=== PATIENT | male | born 1985 | race Caucasian/White ===

== ENCOUNTER 2018-10-20 00:45 | Emergency (ER) | payer OTHER ==
[2018-10-20] MEDS ORDERED: ACETAMINOPHEN 325 MG TABLET PO ONE (02:45)
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
[2018-10-20 04:11] VITALS: BP 121/67
== END 2018-10-20 04:11 | disposition home or self-care (01) ==
LOC: ER 00:45
DX: M25.561 Pain in right knee (principal); M25.562 Pain in left knee; M25.552 Pain in left hip; M54.2 Cervicalgia; M79.18 Myalgia, other site; V43.52XA Car driver injured in collision with other type car in traffic accident, initial encounter; F17.200 Nicotine dependence, unspecified, uncomplicated; Z88.1 Allergy status to other antibiotic agents
CPT/HCPCS: 99283

== ENCOUNTER 2019-04-25 03:32 | Emergency (ER) | payer OTHER ==
--- NOTE | 2019-04-25 04:08 | ER Document Report ---
ED Psych Disorder / Suicide - General Chief Complaint: Psych Problem Stated Complaint: PSYCH Time Seen by Provider: 04/25/19 04:08 Mode of Arrival: Ambulatory Information source: Patient, Law Enforcement, Emergency Med Personnel Notes: HISTORY OF PRESENT ILLNESS: Patient is a 33-year-old male with a past medical history of alcohol abuse who presents with acute psychosis with aggression and self harm behavior after the patient was told by his spouse that "she did not want to have anything to do with me anymore." Onset: Prior to arrival Provocation: Alcohol, problem with spouse Quality: Aggression Radiation: None Severity: Moderate to severe Timing: Constant SI/HI: None voiced, however patient had self-harm behavior that was witnessed by police Hallucinations: None Current therapist: None Current treatment: None REVIEW OF SYSTEMS: CONSTITUTIONAL : Denies fever or chills, no sweats. Denies recent illness. EENT: Denies eye, ear, throat, or mouth pain or symptoms. Denies nasal or sinus congestion. CARDIOVASCULAR: Denies chest pain. RESPIRATORY: Denies cough, cold, or chest congestion. Denies shortness of breath, difficulty breathing, or wheezing. GASTROINTESTINAL: Denies abdominal pain. Denies nausea, vomiting, or diarrhea. Denies constipation. GENITOURINARY: Denies difficulty urinating, painful urination, burning, frequency, or blood in urine. FEMALE GENITOURINARY: Denies vaginal bleeding, abnormal or irregular periods. Last menstrual period MUSCULOSKELETAL: Denies neck or back pain or joint pain or swelling. SKIN: Denies rash or skin lesions. HEMATOLOGIC : Denies easy bruising or bleeding. LYMPHATIC: Denies swollen, enlarged glands. NEUROLOGICAL: Denies altered mental status or loss of consciousness. Denies headache. Denies weakness or paralysis or loss of use of either side. Denies problems with gait or speech. Denies sensory or motor loss. PSYCHIATRIC: Positive for alcohol abuse, positive for self-harm behavior. Denies anxiety or stress or depression. All other systems reviewed and negative. PHYSICAL EXAMINATION: GENERAL: Intoxicated-appearing, well-nourished and in no acute distress. HEAD: Atraumatic, normocephalic. No scalp deformity, depression, or crepitance. EYES: Pupils are 3 mm and equal/round/reactive to light, extraocular movements intact, sclera anicteric, conjunctiva are normal. ENT: Nares patent bilaterally, oropharynx clear without exudates or palatal petechia. Moist mucous membranes. No tonsil hypertrophy. NECK: Normal range of motion, supple without lymphadenopathy. LUNGS: Breath sounds present, equal, and clear to auscultation bilaterally. No wheezes, rales, or rhonchi. HEART: Regular rate and rhythm without murmurs, rubs, or gallops. 2+ peripheral pulses. Normal capillary refill. ABDOMEN: Soft, nontender, nondistended. Normoactive bowel sounds. No guarding, no rebound. No masses appreciated. BACK: Normal contour, no midline tenderness. Rectal exam deferred. GENITAL/PELVC: Deferred. EXTREMITIES: Multiple abrasions that are superficial in nature to both anterior forearms and wrists, no bleeding. Normal range of motion, no pitting or edema. No cyanosis. NEUROLOGICAL: No focal neurological deficits. Moves all extremities spontaneously and on command. PSYCH: Normal mood, normal affect. No suicidal thoughts/ideations. No homicidal thoughts/ideations. No hallucinations. SKIN: Warm, dry, normal turgor, no rashes or lesions noted. ASSESSMENT AND PLAN: This patient is a 33-year-old male who presents with acute psychosis in the setting of alcohol intoxication and self-harm behavior. 1. Will medically clear and involuntary commit for inpatient treatment. 2. Will give tetanus booster and observe until the morning. TRAVEL OUTSIDE OF THE [place] IN LAST 30 DAYS: No - HPI Patient complains to provider of: Aggression, Agitated, Bizarre behavior, Suicidal ideation Onset: Just prior to arrival Onset was: Sudden Quality of pain: No pain Severity: Severe Pain Level: Denies Suicide Risk Factors: Substance abuse Situational problems related to: Spouse Suicide Attempt Method: Stabbing/Cutting Injury to: Wrist Normal mood: Yes Associated symptoms: Agitated, Angry, Depressed Similar symptoms previously: No Recently seen / treated by doctor: No - Related Data Allergies/Adverse Reactions: erythromycin base [Erythromycin Base] Allergy (Verified 10/10/15 00:11) Past Medical History - General Information source: Patient, Law Enforcement, Emergency Med Personnel - Social History Smoking Status: Never Smoker Chew tobacco use (# tins/day): No Frequency of alcohol use: Heavy Drug Abuse: None Lives with: Family Family History: Reviewed & Not Pertinent Patient has suicidal ideation: No Patient has homicidal ideation: No - Past Medical History Cardiac Medical History: Reports: None Pulmonary Medical History: Reports: None EENT Medical History: Reports: None Neurological Medical History: Reports: None Endocrine Medical History: Reports: None Renal/ Medical History: Reports: None. Denies: Hx Peritoneal Dialysis Malignancy Medical History: Reports None GI Medical History: Reports: None Musculoskeletal Medical History: Reports None Skin Medical History: Reports None Psychiatric Medical History: Reports: Other - History of alcohol abuse Traumatic Medical History: Reports: None Surgical Hx: Negative Past Surgical History: Reports: None - Immunizations Immunizations up to date: Yes Review of Systems - Review of Systems Constitutional: No symptoms reported EENT: No symptoms reported Cardiovascular: No symptoms reported Respiratory: No symptoms reported Gastrointestinal: No symptoms reported Genitourinary: No symptoms reported Male Genitourinary: No symptoms reported Musculoskeletal: No symptoms reported Skin: No symptoms reported Hematologic/Lymphatic: No symptoms reported Neurological/Psychological: See HPI, Other - Self-harm behavior -: Yes All other systems reviewed and negative Physical Exam - Vital signs Vitals: Temp Pulse Resp BP Pulse Ox 97.5 F 75 16 119/81 95 04/25/19 03:38 04/25/19 03:38 04/25/19 03:38 04/25/19 03:38 04/25/19 03:38 Interpretation: Normal Course - Re-evaluation Re-evalutation: 04/25/19 06:13 Patient is medically cleared. - Vital Signs Vital signs: Temp Pulse Resp BP Pulse Ox 97.5 F 75 16 119/81 95 04/25/19 03:38 04/25/19 03:38 04/25/19 03:38 04/25/19 03:38 04/25/19 03:38 - Laboratory Result Diagrams: 04/25/19 04:17 04/25/19 04:17 Laboratory results interpreted by me: 04/25/19 04/25/19 04:17 04:17 Urine Ketones TRACE H Urine Urobilinogen 2.0 H Urine Ascorbic Acid 20 H Salicylates < 1.0 L Acetaminophen < 10 L - EKG Interpretation by Ny EKG shows normal: Sinus rhythm Rate: Normal Rhythm: NSR [place]/QRS: No: Right axis deviation, Left axis deviation, RBBB, LBBB, IVCD, LAHB/LAFB, LPHB/LPFB, Bifasicular block Voltage: No: Increased voltage, Consistant with LVH, Decreased voltage, Throughout, Limb leads P Waves: No: RANI, LAE, Absent, AV Dissociation, Other Heart block present: No: 1st Degree, Mobitz 1, Mobitz 2, CHB (3rd degree block) When compared to previous EKG there are: Previous EKG unavailable Discharge - Discharge Clinical Impression: Acute psychosis, Self-harming behavior Alcohol intoxication Qualifiers: Complication of substance-induced condition: uncomplicated Qualified Code(s): F10.920 - Alcohol use, unspecified with intoxication, uncomplicated Condition: Stable Disposition: PSYCH HOSP/UNIT
[2019-04-25 04:47] LABS: ABSOLUTE BASOPHILS # (AUTO) 0.1 10^3/uL (0.0-0.2); ABSOLUTE EOSINOPHILS # (AUTO) 0.1 10^3/uL (0.0-0.6); ABSOLUTE MONOCYTES (AUTO) 0.5 10^3/uL (0.1-1.4); ABSOLUTE NEUT (AUTO) 7.3 10^3/uL (1.7-8.2); BASOPHILS % (AUTO) 0.7 % (0-2); EOSINOPHILS % (AUTO) 1.4 % (0-6); HEMATOCRIT 44.6 % (37.9-51.0); HEMOGLOBIN 15.4 g/dL (13.5-17.0); LYMPHOCYTES % (AUTO) 20.2 % (13-45); MEAN CORPUSCULAR HEMOGLOBIN 32.5 pg (27.0-33.4); MEAN CORPUSCULAR HGB CONC 34.6 g/dL (32.0-36.0); MEAN CORPUSCULAR VOLUME 94 fl (80-97); MONOCYTES % (AUTO) 5.2 % (3-13); PLATELET COUNT 227 10^3/uL (150-450); RED BLOOD COUNT 4.74 10^6/uL (4.35-5.55); RED CELL DISTRIBUTION WIDTH 13.7 % (11.5-14.0); SEGMENTED NEUTROPHILS % (AUTO) 72.5 % (42-78); TOTAL CELLS COUNTED % (AUTO) 100 %; WHITE BLOOD COUNT 10.1 10^3/uL (4.0-10.5)
[2019-04-25 05:04] LABS: ALCOHOL 153 mg/dL (NONE DETECTED); ALKALINE PHOSPHATASE 107 U/L (38-126); ANION GAP 10 (5-19); ASPARTATE AMINO TRANSFERASE 21 U/L (17-59); BILIRUBIN,DIRECT 0.1 mg/dL (0.0-0.4); BILIRUBIN,TOTAL 0.7 mg/dL (0.2-1.3); BLOOD UREA NITROGEN 8 mg/dL (7-20); CALCIUM 9.4 mg/dL (8.4-10.2); CARBON DIOXIDE 27 mmol/L (22-30); CHLORIDE 105 mmol/L (98-107); GLUCOSE 103 mg/dL (75-110); POTASSIUM 3.7 mmol/L (3.6-5.0); TOTAL PROTEIN 6.6 g/dL (6.3-8.2)
[2019-04-25 05:05] LABS: ACETAMINOPHEN < 10 ug/mL (10-30); SALICYLATE < 1.0 mg/dL (2.0-20.0)
[2019-04-25 05:07] LABS: APPEARANCE,URINE CLEAR; BILIRUBIN,URINE NEGATIVE (NEGATIVE); COLOR,URINE YELLOW; GLUCOSE, URINE NEGATIVE (NEGATIVE); KETONES,URINE TRACE mg/dL (NEGATIVE); LEUKOCYTE ESTERASE,URINE NEGATIVE (NEGATIVE); NITRITE,URINE NEGATIVE (NEGATIVE); PROTEIN,URINE NEGATIVE (NEGATIVE); URINE SPECIFIC GRAVITY 1.017
[2019-04-25 05:19] LABS: URINE AMPHETAMINES SCREEN NEGATIVE; URINE BARBITURATES SCREEN NEGATIVE; URINE BENZODIAZEPINES SCREEN NEGATIVE; URINE COCAINE SCREEN NEGATIVE; URINE MARIJUANA (THC) SCREEN NEGATIVE; URINE METHADONE SCREEN NEGATIVE; URINE PHENCYCLIDINE SCREEN NEGATIVE
[2019-04-25] MEDS ORDERED: HALOPERIDOL LACTATE INJ 5 MG/1 ML VIAL IM ONE (07:13)
[2019-04-25] MEDS ORDERED: DIPHENHYDRAMINE HCL 50 MG/ML VIAL IM ONE (07:13)
--- NOTE | 2019-04-25 09:33 | EKG REPORT ---
SEVERITY:- NORMAL ECG - SINUS RHYTHM : Confirmed by: Ariane Morgan MD 25-Apr-2019 09:32:42
[2019-04-25 10:00] VITALS: BP 112/65
--- NOTE | 2019-04-25 10:01 | PSYCHOLOGICAL NOTE ---
Psych Note - Psych Note Date seen by psych provider: 04/25/19 Time seen by psych provider: 07:25 - Chart review at 0725. Evaluation from 909- 914. Psych Note: Presenting Problem: 24 Hour IVC Petition, MCM involvement, Alcohol intoxication (fifth of Rum, Serum Alcohol Level was 153 upon arrival to ED), SI, cut wrist with razor and when removed he then scratched wrist with finger nails. He identified "I'm going through a lot, a divorce, my ex started dating soon after splitting and she asked me advice on her current relationship." He admitted "I started drinking last night, it was a bad plan, I don't usually drink." He showed his left wrist with 3-4 superficial vertical cuts that had scabbed over. He denied previous SI attempts or self injury. He denied previous hospitalizations. He acknowledged he had been on Ritalin in the past. He denied current SI and was worried about getting to work at 1430 today (shows future/forward/goal oriented thinking). He said he was interested in linkage for medication and therapy. Patient was alert and oriented x 5 with linear thinking, mood was depressed with flat affect (likely due to sobering up from alcohol), eye contact was fair, he was able to engage in evaluation and carry on dialogue conversation which was within normal limits for rate/tone/prosody. He mentioned female farm management supervisor as support. Spoke to Shonna Chusc to schedule outpatient follow up. Diagnosis: SI/SIB Alcohol Intoxication Relationship Distress with Spouse Medication recommendations made by the psychiatric medication provider, Dr. Robert MD., includes: Add Effexor 37.5MG daily for depression/focus/energy Add Buspar 5MG twice a day for anxiety/calming effect/depression/sleep Impression/Plan: Patient is cleared from acute psychiatric services. Recommendation to rescind 24 Hour IVC Petition (was never valid, patient demographic info not filled out, not notarized). Patient was alert and oriented x 5 with linear thinking, mood was depressed with flat affect (likely due to sobering up from alcohol), he denied current SI/HI, denied previous attempts or SIB, eye contact was fair, he was able to engage in evaluation and carry on dialogue conversation which was within normal limits for rate/tone/prosody. He was open to medications and linkage. Scheduled follow up appointment with [facility] [place] for tomorrow (04/26/19) at 1030. Provided patient with outpatient MH resource sheet which documented appointment date and time, highlighted IFS MCM and had Good RX card attached for affordable medications. Consulted with Dr. Bush regarding the management and care of patient. ED Physician in agreement with recommendations.
--- NOTE | 2019-04-25 11:03 | ER Document Report ---
Doctor's Note Notes: 04/25/19 11:01 Rounds: Chart reviewed and patient interviewed. Patient being evaluated for alcohol intoxication, suicidal ideation, and self-inflicted superficial wounds. Patient's labs were normal except for his alcohol level 153. His vital signs are normal. Patient appears to be medically stable for transfer or discharge. Deborah Hernandez MD
== END 2019-04-25 11:04 | disposition home or self-care (01) ==
LOC: ER 03:32
DX: F23 Brief psychotic disorder (principal); F10.920 Alcohol use, unspecified with intoxication, uncomplicated; Z72.89 Other problems related to lifestyle; Z63.0 Problems in relationship with spouse or partner; Z88.3 Allergy status to other anti-infective agents
CPT/HCPCS: 93005; 99285; 96372; 36415; 80307 ×4; 85025; 80053; 81001; 93010; J1200; J1630

== ENCOUNTER 2019-05-15 16:27 | Emergency (ER) | payer SELFPAY ==
[2019-05-15 16:34] VITALS: BP 134/84
[2019-05-15] MEDS ORDERED: PENICILLIN V POTASSIUM 500 MG TABLET PO ONE (16:52)
--- NOTE | 2019-05-15 16:54 | ER Document Report ---
HPI - HPI Patient complains to provider of: Dental pain Time Seen by Provider: 05/15/19 16:39 Onset: This morning Onset/Duration: Sudden Quality of pain: Achy Pain Level: 3 Context: 33-year-old male presents emergency department with complaints of dental pain that started today. Reports a filling fell out and is having pain in the right lower molar. Denies pain with heat or cold. Denies sensitive to smoking cigarettes. Patient does not have insurance. Denies fever vomiting diarrhea. Associated Symptoms: None Exacerbated by: Denies Relieved by: Denies Similar symptoms previously: No Recently seen / treated by doctor: No Past Medical History - General Information source: Patient - Social History Smoking Status: Current Every Day Smoker Chew tobacco use (# tins/day): No Frequency of alcohol use: None Drug Abuse: None Occupation: [employer] Family History: Reviewed & Not Pertinent Patient has suicidal ideation: No Patient has homicidal ideation: No - Medical History Medical History: Negative Renal/ Medical History: Denies: Hx Peritoneal Dialysis Surgical Hx: Negative - Immunizations Immunizations up to date: Yes Vertical Provider Document - CONSTITUTIONAL Agree With Documented VS: Yes Exam Limitations: No Limitations General Appearance: WD/WN, No Apparent Distress - INFECTION CONTROL TRAVEL OUTSIDE OF THE [place] IN LAST 30 DAYS: No - HEENT HEENT: Atraumatic, Normocephalic. negative: Conjuctival Injection, Pharyngeal Exudate, Pharyngeal Erythema Mouth Diagram: 1 - Dental cavity noted no erythema no swelling no pustule opens mouth wide no trismus no Geo clear voice good airway - NECK Neck: Normal Inspection, Supple. negative: Lymphadenopathy-Left, Lympha denopathy-Right - RESPIRATORY Respiratory: Breath Sounds Normal, No Respiratory Distress - CARDIOVASCULAR Cardiovascular: Regular Rate - MUSCULOSKELETAL/EXTREMETIES Musculoskeletal/Extremeties: CARLOS AL - NEURO Level of Consciousness: Awake, Alert, Appropriate Motor/Sensory: No Motor Deficit - DERM Integumentary: Warm, Dry Course - Re-evaluation Re-evalutation: 05/15/19 17:33 33-year-old male presents emergency with dental pain no dental insurance. No signs of infection. Opens his mouth wide. No trismus no Geo's. He was prescribed penicillin. He was also instructed he must follow-up with the [facility]. He was given information on dental resources. He verbalized understanding to all instructions. Dictation of this chart was performed using voice recognition software; therefore, there may be some unintended grammatical errors. - Vital Signs Vital signs: Temp Pulse Resp BP Pulse Ox 97.9 F 94 16 134/84 H 97 05/15/19 16:33 05/15/19 16:33 05/15/19 16:33 05/15/19 16:33 05/15/19 16:33 Discharge - Discharge Clinical Impression: Pain, dental Condition: Stable Disposition: HOME, SELF-CARE Instructions: [facility], Penicillin V K ([facility]), Toothache ([facility]) Additional Instructions: *You have been evaluated for dental pain *Take medications as prescribed *Follow up with dentist as soon as possible, see resource list *Return to ED for worsening condition, changes, needs Monitor your blood pressure. Your blood pressure was elevated today. This may be because you were anxious, in pain or because you need medication. It is important to follow up with your primary care provider for full evaluation. Prescriptions: Penicillin V Potassium [Penicillin Vk 500 mg Tablet] 500 mg PO BID #20 tablet Forms: Elevated Blood Pressure, Smoking Cessation Education
== END 2019-05-15 17:00 | disposition home or self-care (01) ==
LOC: ER 16:27
DX: K02.9 Dental caries, unspecified (principal); K08.89 Other specified disorders of teeth and supporting structures; F17.200 Nicotine dependence, unspecified, uncomplicated
CPT/HCPCS: 99282